=== PATIENT | female | born 1930 | race Caucasian/White ===

== ENCOUNTER 2019-02-09 10:17 | Emergency (ER) | payer MEDICARE, OTHER ==
[2019-02-09] MEDS ORDERED: Sodium Chloride 0.9% 10 ML Syringe FLUSH PRN (11:01)
[2019-02-09] MEDS ORDERED: Ondansetron 4 MG/2 ML SDV IVPUSH ONE (11:02)
[2019-02-09] MEDS ORDERED: methylPREDNISolone Sodium Succinate 125 MG/2 ML SDV IVPUSH ONE (11:03)
[2019-02-09] MEDS ORDERED: Meclizine 12.5 MG Tab PO ONE (12:29)
--- NOTE | 2019-02-09 12:33 | CT ---
Head CT Technique: Multiple axial sections through the brain were obtained. Intravenous contrast was not utilized. Comparison: No previous intracranial imaging is available. Findings: Ventricles along with basal cisterns and sulci over the convexities are moderately prominent. Mild diminished density is noted within the periventricular white matter which is most likely due to small vessel ischemic demyelination change. No other abnormal parenchymal densities are seen. No evidence of intracranial hemorrhage. No midline shift or mass effect is seen. Bone window settings were reviewed which show the visualized mastoid and paranasal sinuses to show nothing acute. No acute calvarial abnormality is seen. Impression: 1. Mild senescent change as noted above. 2. No acute intracranial abnormality is identified on noncontrast head CT study. Diagnostic code #2
--- NOTE | 2019-02-09 14:12 | EDM.PDOC ---
ED HPI GENERAL MEDICAL PROBLEM - General Chief Complaint: Cardiovascular Problem Stated Complaint: DIZZY AND NAUSEA Time Seen by Provider: 02/09/19 10:28 Source of Information: Reports: Patient, RN Notes Reviewed - History of Present Illness INITIAL COMMENTS - FREE TEXT/NARRATIVE: 88-year-old lady has suffered multiple episodes of dizziness this past morning. This is primarily feeling of quite severe lightheadedness when standing. It's that when she would sit down she would feel better had this happen 2 or 3 times this morning. Her son then has subsequently brought her here by private vehicle. She has had no chest pain with this. She did have some slight nausea but no vomiting. No abdominal pain. She has not been ill with cough, fever, chills or any difficulty breathing. She does have history of hypertension and is on multiple medications for that. She does not smoke. She lives in an assisted living facility fairly independent with her daily activities. - Related Data Allergies Allergy/AdvReac Type Severity Reaction Status Date / Time No Known Allergies Allergy Verified 02/09/19 10:29 Home Meds: Home Meds Alendronate Sodium [Fosamax] 70 mg PO WEEKLY 02/09/19 [History] Brimonidine Tartrate/Timolol [Combigan 0.2%-0.5% Eye Drops] 1 drop TOP BID 02/09 [History] Latanoprost [Xalatan 0.005% Ophth Soln] 1 drop TOP QPM 02/09/19 [History] Levothyroxine 150 mcg PO DAILY 02/09/19 [History] Losartan/Hydrochlorothiazide [Losartan-HCTZ 50-12.5 MG] 1 tab PO DAILY 02/09/19 [History] Metoprolol Succinate [Toprol XL 50mg] 25 mg PO DAILY 02/09/19 [History] amLODIPine [Norvasc] 5 mg PO DAILY 02/09/19 [History] Past Medical History HEENT History: Reports: Cataract, Impaired Vision [employer] History: Reports: Endocrine/Metabolic History: Reports: Hypothyroidism - Past Surgical History HEENT Surgical History: Reports: Cataract Surgery Social & Family History - Family History Family Medical History: Noncontributory - Tobacco Use Smoking Status *Q: Never Smoker - Caffeine Use Caffeine Use: Reports: Coffee, Tea - Recreational Drug Use Recreational Drug Use: No ED ROS GENERAL - Review of Systems Review Of Systems: See Below Constitutional: Denies: Fever, Chills, Diaphoresis HEENT: Reports: No Symptoms Respiratory: Denies: Shortness of Breath Cardiovascular: Denies: Chest Pain GI/Abdominal: Denies: Abdominal Pain, Nausea, Vomiting Musculoskeletal: Denies: Neck Pain, Shoulder Pain, Arm Pain, Back Pain Skin: Reports: No Symptoms Neurological: Reports: Dizziness. Denies: Numbness, Tingling, Trouble Speaking , Difficulty Walking, Weakness ED EXAM, GENERAL - Physical Exam Exam: See Below General Appearance: Alert, No Apparent Distress Eye Exam: Bilateral Eye: PERRL Throat/Mouth: Normal Inspection, Normal Oropharynx Head: Atraumatic. No: Facial Swelling Neck: Supple, Full Range of Motion Respiratory/Chest: Lungs Clear, Normal Breath Sounds Cardiovascular: Bradycardia GI/Abdominal: Soft, Non-Tender Rectal (Female) Exam: Normal Exam Back Exam: Normal Inspection Extremities: Normal Inspection Neurological: Alert, Oriented, No Motor/Sensory Deficits Skin Exam: Warm, Dry, Normal Color EKG INTERPRETATION EKG Date: 02/09/19 Rhythm: Other (Sinus bradycardia) Rate (Beats/Min): 56 [place]: Normal P-Wave: Present (Prolonged RI interval) QRS: Normal ST-T: Normal Course - Vital Signs Last Recorded V/S: Last Vital Signs Temp 97.7 F 02/09/19 10:25 Pulse 53 L 02/09/19 10:25 Resp 16 02/09/19 10:25 BP 173/61 H 02/09/19 10:25 Pulse Ox 98 02/09/19 10:25 - Orders/Labs/Meds Labs: Laboratory Tests 02/09/19 02/09/19 Range/Units 10:30 10:30 WBC 3.91 L (3.98-10.04) K/mm3 RBC 4.15 (3.98-5.22) M/mm3 Hgb 13.3 (11.2-15.7) gm/dl Hct 38.5 (34.1-44.9) % MCV 92.8 (79.4-94.8) fl MCH 32.0 (25.6-32.2) pg MCHC 34.5 (32.2-35.5) g/dl RDW Std Deviation 41.1 (36.4-46.3) fL Plt Count 157 L (182-369) K/mm3 MPV 9.6 (9.4-12.3) fl Neut % (Auto) 66.7 (34.0-71.1) % Lymph % (Auto) 25.6 (19.3-51.7) % [place] % (Auto) 5.4 (4.7-12.5) % Eos % (Auto) 1.8 (0.7-5.8) Baso % (Auto) 0.5 (0.1-1.2) % Neut # (Auto) 2.61 (1.56-6.13) K/mm3 Lymph # (Auto) 1.00 L (1.18-3.74) K/mm3 [place] # (Auto) 0.21 L (0.24-0.36) K/mm3 Eos # (Auto) 0.07 (0.04-0.36) K/mm3 Baso # (Auto) 0.02 (0.01-0.08) K/mm3 Manual Slide Review Abnormal smear Sodium 141 (136-145) mEq/L Potassium 4.0 (3.5-5.1) mEq/L Chloride 105 (98-107) mEq/L Carbon Dioxide 27 (21-32) mEq/L Anion Gap 13.0 (5-15) BUN 20 H (7-18) mg/dL Creatinine 1.1 H (0.55-1.02) mg/dL Est Cr Clr Drug Dosing 34.97 mL/min Estimated GFR (MDRD) 47 (>60) mL/min BUN/Creatinine Ratio 18.2 H (14-18) Glucose 97 (83-115) mg/dL Calcium 9.6 (8.5-10.1) mg/dL Total Bilirubin 0.5 (0.2-1.0) mg/dL AST 19 (15-37) U/L ALT 17 (14-59) U/L Alkaline Phosphatase 60 (46-116) U/L Total Protein 7.1 (6.4-8.2) g/dl Albumin 4.0 (3.4-5.0) g/dl Globulin 3.1 gm/dL Albumin/Globulin Ratio 1.3 (1-2) Meds: Medications Discontinued Medications Generic Name Dose Route Start Last Admin Trade Name Freq PRN Reason Stop Dose Admin Dextrose/Lactated Ringer's 1,000 mls @ 150 mls/hr 09/25/19 14:15 02/09/19 14: 27 Dextrose 5%-Lactated Ringers IV 150 mls/hr ASDIRECTED ORIN Administration Meclizine HCl 12.5 mg 02/09/19 12:29 02/09/19 12:34 Antivert PO 02/09/19 12:30 12.5 mg ONETIME ONE Administration Methylprednisolone Sodium Succinate 125 mg 02/09/19 11:03 02/09/19 11:11 Solu-Medrol IVPUSH 02/09/19 11:04 125 mg ONETIME ONE Administration Ondansetron HCl 2 mg 02/09/19 11:02 02/09/19 11:11 Zofran IVPUSH 02/09/19 11:03 2 mg ONETIME ONE Administration Sodium Chloride 10 ml 02/09/19 11:01 02/09/19 11:12 Saline Flush FLUSH 10 ml ASDIRECTED PRN Administration Keep Vein Open - Re-Assessments/Exams Free Text/Narrative Re-Assessment/Exam: 02/09/19 14:00. Fortunately our clerical warehouseman and her nurse caught the run of second-degree heart block Tracy Holland that she experienced her about an hour ago. About 5 or 6 seconds but was complete heart block dropping every other QRS. With that her heart rate dropped down to 33. When this was brought to my attention she was back on his bradycardia rate in the 50s. I've discussed this with Equipment Processor on-call for [facility]on, Dr Treviño who recommends that she be transferred, admitted to hospitalist information assurance specialist. Dr Becerra, Hospitalist information assurance specialist does accept patient in transfer for direct admission. Will transfer by ground ambulance. Departure - Departure Time of Disposition: 14:00 Disposition: DC/Tfer to Acute Hospital 02 Reason for Transfer *Q: Other Condition: Serious Clinical Impression: Near syncope, Second degree heart block Referrals: Keny Edwards MD [Primary Care Provider] - Forms: ED Department Discharge
[2019-02-09] MEDS ORDERED: Dextrose 5%-Lactated Ringers 1,000 ML IV SCH (14:15)
== END 2019-02-09 15:57 ==
LOC: JD.ED 10:17
DX: I44.1 Atrioventricular block, second degree (principal); R55 Syncope and collapse; I10 Essential (primary) hypertension; E03.9 Hypothyroidism, unspecified; Z79.890 Hormone replacement therapy; Z79.899 Other long term (current) drug therapy
CPT/HCPCS: 36415; 70450; 80053; 85025; 93005; 96361; 96374; 96375; 99285; A9270; J2405; J2930; J7042; 93010; 99284